=== PATIENT | female | born 1960 | race Caucasian/White ===

== ENCOUNTER 2022-06-18 09:46 | Outpatient (REF) | payer OTHER, SELFPAY ==
[2022-06-18 11:49] LABS: MANUAL DIFF FLAG NO
[2022-06-18 12:00] LABS: Basophils Absolute Auto 0.1 X10*3/uL (0.0-0.2); Basophils Percent Auto 1.5 % (0-2); Eosinophils Absolute Auto 0.3 X10*3/uL (0.0-0.4); Eosinophils Percent Auto 5.6 % (0-4); Hemoglobin 14.6 g/dl (12.0-16.0); Imm Gran Abs Auto 0.01 X10*3/uL (0.00-0.03); Imm Gran Pct Auto 0.2 % (0.0-0.4); Lymphocytes Percent Auto 37.1 % (20-40); Mean Corpuscular HGB Conc 33.2 g/dl (31.0-35.0); Mean Corpuscular Hemoglobin 29.9 pg (27.0-33.0); Mean Platelet Volume 10.3 fL (9.4-12.3); Monocytes Absolute Auto 0.5 X10*3/uL (0.1-1.2); Monocytes Percent Auto 9.8 % (2-11); Neutrophils Absolute Auto 2.4 x10*3/uL (2.0-8.3); Neutrophils Percent Auto 45.8 % (45-73); Platelet Count 275 X10*3/uL (160-400); Red Blood Count 4.89 X10*6/uL (4.20-5.50); Red Cell Distribution Width 12.9 % (11.0-16.0); White Blood Count 5.3 X10*3/uL (4.8-10.8)
[2022-06-18 12:29] LABS: Alanine Aminotransferase 18 U/L (0-31); Albumin Level 4.6 g/dL (3.5-5.0); Alkaline Phosphatase 83 U/L (39-117); Anion Gap 15 (12-20); Aspartate Amino Transferase 25 U/L (5-31); Bilirubin Total 0.5 mg/dL (0.0-1.0); Blood Urea Nitrogen 12 mg/dL (9-16); Calcium 9.7 mg/dL (8.4-10.2); Carbon Dioxide 26 mmol/L (22-29); Chloride 106 mmol/L (96-108); Cholesterol 214 mg/dL; Estimated Glomerular Filt Rate > 60; Glucose Fasting 93 mg/dL (60-99); HDL Cholesterol 63 mg/dL; LDL Cholesterol Calculated 119 mg/dl; Potassium 4.3 mmol/L (3.3-5.1); Sodium 143 mmol/L (135-145); Triglycerides 161 mg/dL
[2022-06-18 12:40] LABS: TSH reflex Free T4 1.95 uIU/mL (0.32-4.0); Vitamin D 25-OH Total 35.4 ng/mL (>30)
== END 2022-06-18 09:47 | disposition home or self-care (01) ==
LOC: HO.HMGCLDS 09:46
PROVIDERS: PCP Internal Medicine; Visit Provider Internal Medicine
DX: Z00.00 Encounter for general adult medical examination without abnormal findings (principal); E03.9 Hypothyroidism, unspecified; E55.9 Vitamin D deficiency, unspecified; E78.5 Hyperlipidemia, unspecified; E04.9 Nontoxic goiter, unspecified
CPT/HCPCS: 36415; 80053; 80061; 82306; 84443; 85025

== ENCOUNTER 2022-07-08 10:20 | Outpatient (REF) | payer OTHER, SELFPAY ==
--- NOTE | ~2022-07-08 | US_ITS ---
EXAMINATION: US THYROID CLINICAL INFORMATION: Nontoxic goiter, unspecified. COMPARISON: None TECHNIQUE: Linear transducer grayscale and color Doppler examination with attention to the region of the thyroid. FINDINGS: SIZE: Measurements of the thyroid lobes and nodules are given in sagittal, anteroposterior and transverse dimensions respectively. Right Thyroid Lobe: 4.5 x 1.9 x 1.8 cm, volume 7.9 mL. Parenchyma: The gland echotexture is heterogeneous. Thyroid vascularity is increased. Left Thyroid Lobe: 3.7 x 1.6 x 2.1 cm, volume 6.5 mL. Parenchyma: The gland echotexture is heterogeneous. Thyroid vascularity is increased. Isthmus: 0.3 cm in maximum AP dimension. Estimated total number of nodules greater than or equal to 1 cm: 1. Cipher Expert nodules are described as follows: 1. Location: Right upper pole. Size: 1.6 x 0.6 x 1.3 cm, volume 0.64 mL. Nodule characteristics: Composition: Solid (2). Echogenicity: Hypoechoic (2). Shape: Not taller than wide (0). Margins: Smooth (0). Echogenic Foci: Punctate echogenic foci (3). ACR TI-RADS total points: 7 ACR TI-RADS category: 5 NODES: Small bilateral normal-appearing cervical lymph nodes adjacent to the thyroid gland. US/US thyroid IMPRESSION: Very heterogeneous hypervascular thyroid gland. Appearance is suggestive of thyroiditis. Solitary right thyroid nodule. Fine-needle aspiration recommended according to TI RADS criteria below. ACR TI-RADS RECOMMENDATION REFERENCE: Ultrasound-guided fine-needle aspiration, followup ultrasound, no further follow up. * TR1 (0 point) and TR 2 (2 points): No FNA or follow up. * TR3 (3 points): FNA if more than or equal to 2.5 cm in maximum dimension, followup ultrasound in 1, 3 and 5 years if 1.5 to 2.4 cm in maximum dimension. * TR4 (4-6 points): FNA if more than or equal to 1.5 cm in maximum dimension, followup ultrasound in 1, 2, 3 and 5 years if 1 to 1.4 cm in maximum dimension. * TR5 (more than or equal to 7 points): FNA if more than or equal to 1 cm in maximum dimension, followup ultrasound every year for 5 years if 0.5 to 0.9 cm in maximum dimension. * TR3, TR4 or TR5 nodules that are below the size threshold for followup receive no follow up.
== END 2022-07-08 10:21 | disposition home or self-care (01) ==
LOC: HO.HMGCX 10:20
PROVIDERS: PCP Internal Medicine; Visit Provider Internal Medicine
DX: E04.9 Nontoxic goiter, unspecified (principal)
CPT/HCPCS: 76536

== ENCOUNTER → 2022-08-28 07:21 | Outpatient (BNVA) | payer OTHER, SELFPAY | PROVIDERS: PCP Internal Medicine; Visit Provider Internal Medicine | DX: E04.1 Nontoxic single thyroid nodule (principal) | CPT/HCPCS: 99202 ==

== ENCOUNTER 2022-08-28 08:02 | Outpatient (REF) | payer OTHER, SELFPAY ==
[2022-08-28 12:08] LABS: Free T4 (Free Thyroxine) 1.38 ng/dL (0.71-1.85); Thyroid Stimulating Hormone 0.81 uIU/mL (0.32-4.0)
[2022-08-30 01:49] LABS: Thyroglobulin Antibodies <1 IU/mL (< or = 1); Thyroid Peroxidase Antibodies 642 IU/mL (<9)
== END 2022-08-28 08:03 | disposition home or self-care (01) ==
LOC: HO.10HDL 08:02
PROVIDERS: Visit Provider Internal Medicine
DX: E04.1 Nontoxic single thyroid nodule (principal)
CPT/HCPCS: 36415; 84439; 84443; 86376; 86800

== ENCOUNTER 2022-12-31 07:58 | Day surgery (SDC) | payer OTHER, SELFPAY ==
--- NOTE | 2022-12-30 11:01 | P.CONAN_ITS ---
HPI - Anesthesia Eval Consult details Narrative: 62yo F for Colonoscopy PMFSH Active Problems Active Problems: All Active Problems (Updated 07/24/22 @ 08:50 by Latasha Watson MD) Thyroid nodule (Acute) Enlarged thyroid (Acute) Vitamin D deficiency (Acute) Postmenopausal (Acute) Hx of colonoscopy (Acute) Mammogram normal (Acute) Normal pelvic exam (Acute) S/P shoulder replacement (Acute) S/P knee replacement (Acute) Annual physical exam (Acute) Hypothyroidism (Acute) Hyperlipidemia (Acute) Past Medical History Medical History (Updated 12/30/22 @ 11:03 by Barb Sue NP) Hyperlipidemia Hypothyroidism Postmenopausal Tubal Family History Family History Father CHF (congestive heart failure) Mother H/O kidney removal Surgical History Surgical History History of total bilateral knee replacement Hx of rotator cuff surgery Hx of tonsillectomy Social History Social History Household Members Other:: , no children, works as [employer] Housing: House Patient Tobacco Use Status: Former Tobacco user e-Cigarette/Vaping Use: Never Used Are you DNR?: No Advance Directives: No Advance Directives Information Provided: Yes Current occupational status: employed Cognitive needs: No Hearing needs: No Vision needs: Yes Meds Allergies Allergy/AdvReac Type Severity Reaction Status Date / Time No Known Allergies Allergy Verified 08/28/22 07:56 Exam Exam Date and Time: December 30, 2022 1101 Assessment and Plan Assessment Anesthesia Assessment: Chart Reviewed
[2022-12-31 08:06] VITALS: BP 145/84; PULSE 58; RESP 20; TEMP 36.1; O2SAT 96; BMI 27.9
[2022-12-31] MEDS: Lactated Ringers 1,000 ML 100 ML IVCONT (08:31)
--- NOTE | 2022-12-31 09:03 | MHC.SHP ---
Pre-Procedural Eval Section A Date of Service: 12/31/22 Section B Chief Complaint: screening Details of Present Illness: see H&P no changes Relevant Family History (Specify if Yes): No Relevant Social History: None Present Medications: see Short Stay Collaborative assessment Medical History: No relevant PMH History of Previous Operations: No relevant previous surgery Allergies: Allergies Allergy/AdvReac Type Severity Reaction Status Date / Time No Known Allergies Allergy Verified 08/28/22 07:56 Review of Systems Sugical H&P ROS: Negative: Constitution, Cardiovascular, Respiratory, Neurological, Psychiatric, Hem-Onc, Allergic/Immunologic, Gastrointestinal, Genitourinary, Musculoskeletal, Integumentary, Endocrine and Eyes/Ears/Nose/Throat Exam Surgical H&P Exam: Normal: HEENT, Normal: Heart, Normal: Lungs, Normal: Extremities, Normal: Abdomen, Normal: Skin and Normal: Neurological Plan Diagnosis/Plan: Unchanged I have reviewed the history and physical and performed a pertinent physical examination on my patient. No changes have occurred unless specified. Time Spent With Patient Time: Total time managing care of this patient today ____ minutes.
--- NOTE | 2022-12-31 09:29 | HO.ANESPROP2 ---
HPI - Anesthesia Eval Consult details Narrative: screening colon PMFSH Active Problems Active Problems: All Active Problems (Updated 12/30/22 @ 11:03 by Barb Sue NP) Thyroid nodule (Acute) Enlarged thyroid (Acute) Vitamin D deficiency (Acute) Hx of colonoscopy (Acute) Mammogram normal (Acute) Normal pelvic exam (Acute) S/P shoulder replacement (Acute) S/P knee replacement (Acute) Annual physical exam (Acute) Past Medical History Medical History (Updated 12/30/22 @ 11:03 by Barb Sue NP) Hyperlipidemia Hypothyroidism Postmenopausal Tubal Family History Family History Father CHF (congestive heart failure) Mother H/O kidney removal Family history of problems with anesthesia: No Surgical History Surgical History History of total bilateral knee replacement Hx of rotator cuff surgery Hx of tonsillectomy History of Problems with Anesthesia: No Social History Social History Household Members Other:: , no children, works as [employer] Housing: House Patient Tobacco Use Status: Former Tobacco user e-Cigarette/Vaping Use: Never Used Are you DNR?: No Advance Directives: No Advance Directives Information Provided: Yes Current occupational status: employed Cognitive needs: No Hearing needs: No Vision needs: Yes Meds Allergies Allergy/AdvReac Type Severity Reaction Status Date / Time No Known Allergies Allergy Verified 08/28/22 07:56 Active Medications: Current Medications Lactated Ringer's (Lr) 1,000 mls @ 100 mls/hr IVCONT .Q10H SANTIAGO Last Admin: 12/31/22 08:31 Dose: 100 mls/hr Exam Exam Date and Time: December 31, 2022 0929 Height,Weight and Vital Signs: Height 5 ft 7 in Weight 80.739 kg Last Vital Signs Temp 97 F 12/31/22 08:06 Pulse 58 12/31/22 08:06 Resp 20 12/31/22 08:06 BP 145/84 H 12/31/22 08:06 Pulse Ox 96 12/31/22 08:06 O2 Del Method Room Air 12/31/22 08:06 Airway Mallampati Class: II TM Dist: >3cm Neck ROM: Full Loose/Missing/Broken Teeth: No Heart: rr Lungs: cta Assessment and Plan Final Anesthetic Review Family History of Problems with Anesthesia: No History of Problems with Anesthesia: No NPO: Yes ASA Class: II Final Preanesthetic Review: No Changes in Pt Med Stat, Meds/Allgs Chart Reviewed, Consent Obtained/Reviewed and Anes Risks/Benef Reviewed Patient Risk: Low Procedure Risk: Low Anesthetic Plan Anesthetic Plan: MAC: Disposition: Standard PACU
--- NOTE | 2022-12-31 10:11 | P.BOP_ITS ---
Brief Operative Note Date of Service: 12/31/22 Pre-op diagnosis: screening Procedure: colonoscopy Surgeon: Kwadwo Chao Anesthesia: MAC Was an Operator/Assistant Foreman used for this Procedure?: No Estimated blood loss (mL): 2 Pathology: other Condition: stable Disposition: PACU
[2022-12-31 10:15] VITALS: BP 126/76; PULSE 58; RESP 16; TEMP 36.6; O2SAT 93
[2022-12-31 10:30] VITALS: BP 136/81; PULSE 57; RESP 18; TEMP 36.6; O2SAT 96
--- NOTE | 2022-12-31 11:26 | OP_ITS ---
DATE OF SERVICE: 12/31/2022 SURGEON: Kwadwo Chao MD INDICATIONS: Colon cancer screening. PREOPERATIVE DIAGNOSIS: POSTOPERATIVE DIAGNOSIS: PROCEDURE PERFORMED: Colonoscopy to the terminal ileum with biopsy and snare polypectomy. ESTIMATED BLOOD LOSS: COMPLICATIONS: ANESTHESIA: Monitored anesthesia care. ASSISTANTS: SPECIMENS: DESCRIPTION OF PROCEDURE: A history and physical was performed. The risks and benefits of the procedure were explained to the patient. Informed consent was obtained. The patient was placed in the left lateral decubitus position. A digital rectal exam was performed and was found to be normal. The Olympus pediatric video colonoscope was introduced into the rectum and advanced to the cecum without difficulty. The cecum was identified by transillumination, palpation, and identification of ileocecal valve. Examination was performed. The scope was removed. She tolerated the procedure well and was returned to the recovery area in stable condition. FINDINGS: The terminal ileum was examined briefly and appeared normal. The visualized colonic mucosa was normal. The quality of the prep was good. At 70 cm were 2 polyps which were removed with a hot snare and biopsy forceps. Both measured less than 10 mm. At 20 cm was an 8 mm polyp, which was removed with a hot snare and recovered via suction. There was mild sigmoid diverticulosis. Retroflexed examination showed small internal hemorrhoids. IMPRESSION: Colon polyps. RECOMMENDATION: Follow up the biopsy results. MD SHARDA Verdugo/ALYSHA / [id number]
== END 2022-12-31 11:00 | disposition home or self-care (01) ==
PROVIDERS: PCP Internal Medicine; Visit Provider Internal Medicine Gastroenterology
PROC: 0DJD8ZZ Inspection of Lower Intestinal Tract, Via Natural or Artificial Opening Endoscopic (ICD-10-PCS; CPT 45378; principal; 2022-12-31 09:00)
DX: Z12.11 Encounter for screening for malignant neoplasm of colon (principal); D12.6 Benign neoplasm of colon, unspecified; K57.30 Diverticulosis of large intestine without perforation or abscess without bleeding; K64.8 Other hemorrhoids; Z86.010 Personal history of colon polyps
CPT/HCPCS: 45385; 88305

== ENCOUNTER 2023-03-20 10:41 | Outpatient (REF) | payer OTHER, SELFPAY ==
--- NOTE | 2023-03-20 11:05 | PM.OP ---
Brief Operative Note Date of Service: 03/20/23 Pre-op diagnosis: Goiter Procedure: EXAMINATION: US THYROID CLINICAL INFORMATION: Multinodular Thyroid COMPARISON: Prior TECHNIQUE: Linear transducer mcgarry-scale and color Doppler examination with attention to the region of the thyroid. FINDINGS: SIZE: Measurements of the thyroid lobes and nodules are given in sagittal, anteroposterior and transverse dimensions respectively. Right Thyroid Lobe: 1.8 x 3.8 x 1.7 cm, volume 6.3 mL. Parenchyma: The gland echotexture is diffusely heterogenous. Left Thyroid Lobe: 1.5 x 3.3 x 1.5 cm, volume 3.8 mL. Parenchyma: The gland echotexture is diffusely heterogenous. Isthmus: 0.1 cm in maximum AP dimension. There are no true nodules visualized, only pseudonodules. NODES: No lymphadenopathy is seen in the tissue surrounding the thyroid gland. Surgeon: Chante Silva, DO Was an Hl7 Interface Developer used for this Procedure?: No Estimated blood loss (mL): 0
== END 2023-03-20 10:42 | disposition home or self-care (01) ==
LOC: HO.US 10:41
PROVIDERS: PCP Internal Medicine; Visit Provider Internal Medicine
DX: E04.1 Nontoxic single thyroid nodule (principal)
CPT/HCPCS: 76536

== ENCOUNTER → 2023-03-20 10:41 | Outpatient (BNV) | payer OTHER, SELFPAY | PROVIDERS: PCP Internal Medicine; Visit Provider Internal Medicine | DX: E04.1 Nontoxic single thyroid nodule (principal) | CPT/HCPCS: 76536 ==

== ENCOUNTER 2023-04-07 07:51 | Outpatient (AMB) | payer OTHER, SELFPAY ==
--- NOTE | 2023-04-07 07:52 | MHC.OFFVIS ---
Intake Intake Visit Reasons: FNA results Intake Note: FNA results. Tractor Engine Mechanic Required: No Allergies No Known Allergies Allergy (Verified 04/07/23 08:00) Medication List - Last Reconciled 04/07/23 by Chante Silva, DO levothyroxine 100 mcg PO DAILY simvastatin 40 mg PO BEDTIME HPI HPI Comments History of Present Illness Details 62 YO F with PMHx Hypothyroidism who is seen in F/U. Was initially diagnosed with multinodular thyroid in 2021 with thyroid US revealing a solitary RUP thyroid nodule. I repeated her US of the thyroid myself 03/20/2023 and found no true nodules, only pseudonodules present. Currently denies any compressive symptoms. Denies sensation of swelling in the neck or difficulty breathing while lying flat. Denies any palpitations, tremors, weight loss, frequent bowel movements. Denies any ocular complaints, blurred or double vision. Denies hair loss, dry skin, heat or cold intolerance, weight gain, confusion. Denies any history of head or neck irradiation. Denies any family history of thyroid cancer. Has hypothyroidism and takes Levothyroxine 100 mcg PO daily. TSH at goal. Thyroid US: 07/08/2022 Right Thyroid Lobe: 4.5 x 1.9 x 1.8 cm, volume 7.9 mL. Parenchyma: The gland echotexture is heterogeneous. Thyroid vascularity is increased. Left Thyroid Lobe: 3.7 x 1.6 x 2.1 cm, volume 6.5 mL. Parenchyma: The gland echotexture is heterogeneous. Thyroid vascularity is increased. Isthmus: 0.3 cm in maximum AP dimension. Estimated total number of nodules greater than or equal to 1 cm: 1. Form Maker Plaster nodules are described as follows: 1. Location: Right upper pole. ?? ? Size: 1.6 x 0.6 x 1.3 cm, volume 0.64 mL. ?? ? Nodule characteristics: ?? ? Composition: Solid (2). ?? ? Echogenicity: Hypoechoic (2). ?? ? Shape: Not taller than wide (0). ?? ? Margins: Smooth (0). ?? ? Echogenic Foci: Punctate echogenic foci (3). ?? ? ACR TI-RADS total points: 7 ?? ? ACR TI-RADS category: 5 NODES: Small bilateral normal-appearing cervical lymph nodes adjacent to the thyroid gland. Labs: Laboratory Tests 08/28/22 08:12 TSH 0.81 PFSH Medical History Hyperlipidemia Hypothyroidism Postmenopausal Tubal Surgical History History of total bilateral knee replacement Hx of rotator cuff surgery Hx of tonsillectomy Family History Father CHF (congestive heart failure) Mother H/O kidney removal Social History Household Members Other:: , no children, works as [employer] Housing: House Patient Tobacco Use Status: Former Tobacco user e-Cigarette/Vaping Use: Never Used Current occupational status: employed Cognitive needs: No Hearing needs: No Vision needs: Yes Assessment & Plan Assessment & Plan (1) Thyroid nodule: Code(s): E04.1 - Nontoxic single thyroid nodule Plan: We repeated her US 03/20/2023 with no identification of any true nodules only pseudonodules. We discussed this today. I advised there is no indication for surveillance US at this time, but if she notes any changes in symptoms such as swelling in the neck, changes in her voice or difficulty swallowing she should notify her PCP and a repeat US can be checked. She will F/u with her PCP for further management. All of her questions were answered. She is in agreement with this plan of care. I spent 20 minutes in reviewing the record, seeing the patient and documenting in the medical record, including 5 minutes on the phone with the Patient. Telehealth Telehealth Location of provider rendering services: practice address Location of patient: address on file Patient Identification confirmed using: Name, : Yes Telehealth method: voice only Patient verbally consented to treatment: Yes Patient verbally consented to billing insurance company: Yes Patient informed of any privacy concerns related to visit: Yes Coding Level of Care Code Tele Est Pt Level 3 (62071) Diagnoses Thyroid nodule E04.1
== END 2023-04-07 14:37 | disposition home or self-care (01) ==
LOC: HO.ENCR 07:51
PROVIDERS: PCP Internal Medicine; Visit Provider Internal Medicine
DX: E04.1 Nontoxic single thyroid nodule (principal)
CPT/HCPCS: 99213

== ENCOUNTER → 2023-04-07 07:51 | Outpatient (BNVA) | payer OTHER, SELFPAY | PROVIDERS: PCP Internal Medicine; Visit Provider Internal Medicine ==

== ENCOUNTER 2023-08-19 07:14 | Outpatient (REF) | payer OTHER, SELFPAY ==
[2023-08-19 11:07] LABS: MANUAL DIFF FLAG NO
[2023-08-19 11:12] LABS: Basophils Absolute Auto 0.1 X10*3/uL (0.0-0.2); Basophils Percent Auto 1.2 % (0-2); Eosinophils Absolute Auto 0.6 X10*3/uL (0.0-0.4); Hemoglobin 14.5 g/dl (12.0-16.0); Imm Gran Abs Auto 0.02 X10*3/uL (0.00-0.03); Imm Gran Pct Auto 0.4 % (0.0-0.4); Lymphocytes Absolute Auto 2.3 X10*3/uL (1.2-4.9); Lymphocytes Percent Auto 39.6 % (20-40); Mean Corpuscular HGB Conc 33.7 g/dl (31.0-35.0); Mean Corpuscular Hemoglobin 30.5 pg (27.0-33.0); Mean Corpuscular Volume 90.5 fL (80.0-98.0); Mean Platelet Volume 10.8 fL (9.4-12.3); Monocytes Absolute Auto 0.5 X10*3/uL (0.1-1.2); Monocytes Percent Auto 9.3 % (2-11); Neutrophils Absolute Auto 2.3 x10*3/uL (2.0-8.3); Neutrophils Percent Auto 39.5 % (45-73); Platelet Count 260 X10*3/uL (160-400); Red Blood Count 4.75 X10*6/uL (4.20-5.50); Red Cell Distribution Width 12.5 % (11.0-16.0); White Blood Count 5.7 X10*3/uL (4.8-10.8)
[2023-08-19 12:04] LABS: Alanine Aminotransferase 18 U/L (0-31); Albumin Level 4.1 g/dL (3.5-5.0); Alkaline Phosphatase 63 U/L (39-117); Anion Gap 10 (12-20); Aspartate Amino Transferase 19 U/L (5-31); Bilirubin Total 0.4 mg/dL (0.0-1.0); Blood Urea Nitrogen 9 mg/dL (9-16); Calcium 9.2 mg/dL (8.4-10.2); Carbon Dioxide 29 mmol/L (22-29); Chloride 110 mmol/L (96-108); Cholesterol 144 mg/dL (<200); Estimated Glomerular Filt Rate > 60; Glucose Fasting 99 mg/dL (60-99); HDL Cholesterol 55 mg/dL (>40); LDL Cholesterol Calculated 57 mg/dL (<100); Potassium 4.5 mmol/L (3.3-5.1); Sodium 144 mmol/L (135-145); Total Protein 6.6 g/dL (6.5-8.0); Triglycerides 160 mg/dL (<150)
[2023-08-19 12:21] LABS: TSH reflex Free T4 2.79 uIU/mL (0.32-4.0)
== END 2023-08-19 07:15 | disposition home or self-care (01) ==
LOC: HO.HMGCLDS 07:14
PROVIDERS: PCP Internal Medicine; Visit Provider Internal Medicine
DX: Z00.00 Encounter for general adult medical examination without abnormal findings (principal); E04.9 Nontoxic goiter, unspecified; E03.9 Hypothyroidism, unspecified; E78.5 Hyperlipidemia, unspecified
CPT/HCPCS: 36415; 80053; 80061; 84443; 85025

== ENCOUNTER 2023-08-25 09:25 | Outpatient (AMB) | payer OTHER, SELFPAY ==
[2023-08-25 09:39] VITALS: BP 110/66; PULSE 68; O2SAT 95; BMI 27.4
--- NOTE | 2023-08-25 09:39 | MHC.PC.OV ---
Vital Signs 08/25/23 09:39 Height 5 ft 7 in Weight 175 lb BMI 27.4 BP 110/66 Blood Pressure Location Lt brachial Position Sitting Pulse 68 Pulse Source Pulse Oximeter Pulse Oximetry (%) 95 Oxygen Delivery Method Room Air Intake Visit Reasons: PE Intake Note: Pt is here today for PE. Pt states that she has appt next month with her Double Reamer Operator at [facility]. Allergies No Known Allergies Allergy (Verified 08/25/23 09:49) Medication List - Last Reconciled 08/25/23 by Latasha Watson MD levothyroxine 100 mcg PO DAILY simvastatin 40 mg PO BEDTIME Tobacco use date assessed: 08/25/23 Fall risk assessment: No Falls in past year Last assessed Fall Risk: 08/25/23 Dental Screening Dental Screen Date: 08/25/23 Did you have a dental visit in the last 12 months?: Yes Did you have a dental problem in the last 6 months where you did not have access to dental care?: No Was dental information given to patient?: Patient has dentist [facility] Medical History (Updated 08/25/23 @ 10:38 by Latasha Watson MD) Postmenopausal Hypothyroidism Hyperlipidemia Surgical History (Updated 08/25/23 @ 10:22 by Latasha Watson MD) Hx of rotator cuff surgery Hx of tonsillectomy History of total bilateral knee replacement Family History Father CHF (congestive heart failure) Mother H/O kidney removal Social History Household Members Other:: , no children, works as [employer] Housing: House Patient Tobacco Use Status: Former Tobacco user e-Cigarette/Vaping Use: Never Used Current occupational status: employed Cognitive needs: No Hearing needs: No Vision needs: Yes Questionnaire PHQ-9 Over the last 2 weeks, how often have you been bothered by any of the following problems? 1. Little interest or pleasure in doing things: not at all 2. Feeling down, depressed, or hopeless: not at all 3. Trouble falling or staying asleep, or sleeping too much: not at all 4. Feeling tired or having little energy: not at all 5. Poor appetite or overeating: not at all 6. Feeling bad about yourself - or that you are a failure or have let yourself or your family down: not at all 7. Trouble concentrating on things, such as reading the newspaper or watching television: not at all 8. Moving or speaking so slowly that other people could have noticed. Or the opposite - being so fidgety or restless that you have been moving around a lot more than usual: not at all 9. Thoughts that you would be better off or of hurting yourself in some way: not at all Total score: 0 Depression Screening Interpretation: Negative Depression Screening Done: Yes Source: Developed by Drs. Hari Bergeron, Katia Gaston, Damon Cornell and colleagues, with an educational william from [employer]. Thrive Questionnaire Date Thrive assessed: 08/25/23 I am a: Patient What is your living situation today?: I have a steady place to live Within the past 12 months, did the food you bought not last and you didn't have the money to get more?: Never true Within the past 12 months, did you worry whether your food would run out before you got money to buy more?: Never true Do you have trouble paying for medicines?: No Do you have trouble getting transportation to medical appointments?: No Do you have trouble paying your heating and electricity bill?: No Do you have trouble taking care of your child, family member or friend?: No Do you have trouble with day-to-day activities such as bathing, preparing meals, shopping, managing finances, etc.?: No Are you currently unemployed and looking for a job?: No Are you interested in more education?: No Please select the resources that you would like help with: None Currently or been in a relationship where the following occur: no concerns reported AUDIT C Alcohol Use Questionnaire (AUDIT-C) 1. How often do you have a drink containing alcohol?: Monthly or less 2. How many drinks containing alcohol do you have on a typical day when you are drinking?: 1 or 2 3. How often do you have six or more drinks on one occasion?: Never Total Score: 1 RAY-7 AMB Questionnaire RAY-7 Date RAY - 7 assessed: 08/25/23 Feeling nervous, anxious, or on edge: 0 = Not at all Not being able to stop or control worryin = Not at all Worrying too much about different things: 0 = Not at all Trouble relaxin = Not at all Being so restless that it is hard to sit still: 0 = Not at all Becoming easily annoyed or irritable: 0 = Not at all Feeling afraid as if something awful might happen: 0 = Not at all Total RAY-7 score (0-4 normal; 5-9 mild; 10-14 moderate; 15-21 severe): 0 Source: Developed by Drs. Hari Bergeron, Katia Gaston, Damon Cornell and colleagues, with an educational william from [employer]. Review of Systems Const All systems reviewed & are unremarkable except as noted in HPI and below Reports no additional complaints Eyes Reports no additional complaints ENT Reports no additional complaints Card Reports no additional complaints Resp Reports no additional complaints GI Reports no additional complaints Reports no additional complaints Physical exam (Primary Care) Vital Signs: Last Vital Signs Pulse 68 08/25/23 09:39 BP 110/66 08/25/23 09:39 Pulse Ox 95 08/25/23 09:39 Oxygen Delivery Method Room Air 08/25/23 09:39 BMI result Body Mass Index 27.4 Tobacco/Smoking Status: Tobacco use Status Tobacco use date assessed 08/25/23 08/25/23 09:41 Patient Tobacco Use Status Former Tobacco user 08/25/23 09:41 e-Cigarette/Vaping Use Never Used 08/25/23 09:41 PHQ-9: PHQ-9 Score PHQ-9: Total score 0 08/25/23 09:53 Depression Screening Interpretation: Negative Thrive Assessment: Date of Thrive Assessment Date Thrive assessed 08/25/23 08/25/23 09:53 Currently or been in a relationship where the following occur: no concerns reported Const General: no acute distress HENMT Head: Yes normal to inspection Ears: hearing grossly normal bilaterally Face and sinus: Yes normal facial exam Throat: Yes posterior oropharynx normal Eyes General: appearance normal, both eyes and all related structures Neck Neck: Yes no lymphadenopathy and Yes supple Resp Effort & Inspection: normal respiratory effort Auscultation: clear to auscultation bilaterally Cardio Rhythm: regular rhythm Heart sounds: S1 normal heart sound present and S2 normal heart sound present GI Inspection: Yes normal to inspection Palpation (GI): Soft to palpation Percussion: Yes normal to percussion Auscultation: normal bowel sounds Assessment and Plan Assessment & Plan (1) Mammogram normal: Comment: [facility] 2022 (2) Hx of colonoscopy: Comment: 11/2017, 1 polyp, 04/2023 polyps, Dr. Chao recheck 5 yrs Code(s): Z98.890 - Other specified postprocedural states Plan: f/u with GI (3) Thyroid nodule: Comment: negative US repeated by Endo, no need for recheck Code(s): E04.1 - Nontoxic single thyroid nodule (4) Hypothyroidism: Code(s): E03.9 - Hypothyroidism, unspecified Plan: cont Levothyroxine (5) Hyperlipidemia: Code(s): E78.5 - Hyperlipidemia, unspecified Plan: cont Simvastatin (6) Annual physical exam: Code(s): Z00.00 - Encounter for general adult medical examination without abnormal findings Plan: Well-balanced diet regular exercise discussed with the patient. Return in 1 year for PE (7) Postmenopausal: Comment: DEXA 09/09 [facility] T score-1.3 osteopenia Code(s): Z78.0 - Asymptomatic menopausal state Plan: Continue vitamin-D supplement and regular weight-bearing exercises Orders: Orders Complete Blood Count Auto Diff 365 Days E03.9 - Hypothyroidism, unspecified, E04.1 - Nontoxic single thyroid nodule, E78.5 - Hyperlipidemia, unspecified, Z00.00 - Encounter for general adult medical examination without abnormal findings, Z98.890 - Other specified postprocedural states TSH reflex Free T4 365 Days E03.9 - Hypothyroidism, unspecified, E04.1 - Nontoxic single thyroid nodule, E78.5 - Hyperlipidemia, unspecified, Z00.00 - Encounter for general adult medical examination without abnormal findings, Z98.890 - Other specified postprocedural states Comprehensive [place]. Panel Fast 365 Days E03.9 - Hypothyroidism, unspecified, E04.1 - Nontoxic single thyroid nodule, E78.5 - Hyperlipidemia, unspecified, Z00.00 - Encounter for general adult medical examination without abnormal findings, Z98.890 - Other specified postprocedural states Lipid Panel 365 Days E03.9 - Hypothyroidism, unspecified, E04.1 - Nontoxic single thyroid nodule, E78.5 - Hyperlipidemia, unspecified, Z00.00 - Encounter for general adult medical examination without abnormal findings, Z98.890 - Other specified postprocedural states Vitamin D 25-OH Total 365 Days E03.9 - Hypothyroidism, unspecified, E04.1 - Nontoxic single thyroid nodule, E78.5 - Hyperlipidemia, unspecified, Z00.00 - Encounter for general adult medical examination without abnormal findings, Z98.890 - Other specified postprocedural states Coding Level of Care Code Est Pt Prev Care 40-64y(63670) Diagnoses Mammogram normal Hx of colonoscopy Z98.890 Thyroid nodule E04.1 Hypothyroidism E03.9 Hyperlipidemia E78.5 Annual physical exam Z00.00 Postmenopausal Z78.0
== END 2023-08-25 10:38 | disposition home or self-care (01) ==
PROVIDERS: PCP Internal Medicine; Visit Provider Internal Medicine
DX: Z98.890 Other specified postprocedural states (principal); E04.1 Nontoxic single thyroid nodule; E03.9 Hypothyroidism, unspecified; E78.5 Hyperlipidemia, unspecified; Z00.00 Encounter for general adult medical examination without abnormal findings; Z78.0 Asymptomatic menopausal state
CPT/HCPCS: 99396

== ENCOUNTER 2024-09-07 07:19 | Outpatient (REF) | payer MEDICARE, SELFPAY ==
[2024-09-07 09:59] LABS: MANUAL DIFF FLAG NO
[2024-09-07 10:14] LABS: Basophils Absolute Auto 0.1 X10*3/uL (0.0-0.2); Basophils Percent Auto 1.2 % (0-2); Eosinophils Absolute Auto 0.3 X10*3/uL (0.0-0.4); Eosinophils Percent Auto 4.8 % (0-4); Hematocrit 44.1 % (37.0-47.0); Hemoglobin 14.8 g/dl (12.0-16.0); Imm Gran Abs Auto 0.02 X10*3/uL (0.00-0.03); Imm Gran Pct Auto 0.4 % (0.0-0.4); Lymphocytes Absolute Auto 1.9 X10*3/uL (1.2-4.9); Lymphocytes Percent Auto 35.6 % (20-40); Mean Corpuscular HGB Conc 33.6 g/dl (31.0-35.0); Mean Corpuscular Hemoglobin 30.5 pg (27.0-33.0); Mean Corpuscular Volume 90.9 fL (80.0-98.0); Mean Platelet Volume 10.6 fL (9.4-12.3); Monocytes Absolute Auto 0.5 X10*3/uL (0.1-1.2); Monocytes Percent Auto 9.1 % (2-11); Neutrophils Absolute Auto 2.5 x10*3/uL (2.0-8.3); Neutrophils Percent Auto 48.9 % (45-73); Platelet Count 264 X10*3/uL (160-400); Red Blood Count 4.85 X10*6/uL (4.20-5.50); Red Cell Distribution Width 12.6 % (11.0-16.0); White Blood Count 5.2 X10*3/uL (4.8-10.8)
[2024-09-07 11:17] LABS: Alanine Aminotransferase 21 U/L (0-31); Albumin Level 4.4 g/dL (3.5-5.0); Alkaline Phosphatase 63 U/L (39-117); Anion Gap 9 (12-20); Aspartate Amino Transferase 23 U/L (5-31); Bilirubin Total 0.5 mg/dL (0.0-1.0); Blood Urea Nitrogen 18 mg/dL (9-16); Calcium 9.2 mg/dL (8.4-10.2); Carbon Dioxide 30 mmol/L (22-29); Chloride 108 mmol/L (96-108); Cholesterol 194 mg/dL (<200); Estimated Glomerular Filt Rate > 60; Glucose Fasting 97 mg/dL (60-99); HDL Cholesterol 58 mg/dL (>40); LDL Cholesterol Calculated 101 mg/dL (<100); Potassium 3.8 mmol/L (3.3-5.1); Sodium 143 mmol/L (135-145); TSH reflex Free T4 3.45 uIU/mL (0.32-4.0); Total Protein 7.2 g/dL (6.5-8.0); Triglycerides 175 mg/dL (<150); Vitamin D 25-OH Total 42.7 ng/mL (>30)
== END 2024-09-07 07:20 | disposition home or self-care (01) ==
LOC: HO.HMGCLDS 07:19
PROVIDERS: PCP Internal Medicine; Visit Provider Internal Medicine
DX: Z00.00 Encounter for general adult medical examination without abnormal findings (principal); E03.9 Hypothyroidism, unspecified; E04.1 Nontoxic single thyroid nodule; E78.5 Hyperlipidemia, unspecified; Z98.890 Other specified postprocedural states
CPT/HCPCS: 36415; 80053; 80061; 82306; 84443; 85025

== ENCOUNTER 2024-09-14 08:27 | Outpatient (AMB) | payer MEDICARE, SELFPAY ==
[2024-09-14 08:32] VITALS: BP 126/74; PULSE 65; TEMP 36.6; O2SAT 96; BMI 27.4
--- NOTE | 2024-09-14 08:32 | MHC.PC.OV ---
Vital Signs 09/14/24 08:32 Height 5 ft 7 in Weight 175 lb BMI 27.4 BP 126/74 Blood Pressure Location Rt brachial Position Sitting Pulse 65 Pulse Source Pulse Oximeter Temp 97.8 F Temp Source Oral Pulse Oximetry (%) 96 Oxygen Delivery Method Room Air Intake Visit Reasons: Annual PE Intake Note: Pt is here today for PE. Allergies No Known Allergies Allergy (Verified 09/14/24 08:33) Medication List - Last Reconciled 09/14/24 by Latasha Watson MD levothyroxine 100 mcg PO DAILY simvastatin 40 mg PO BEDTIME Tobacco use date assessed: 09/14/24 Fall risk assessment: No Falls in past year Last assessed Fall Risk: 09/14/24 Dental Screening Dental Screen Date: 09/14/24 Did you have a dental visit in the last 12 months?: Yes Did you have a dental problem in the last 6 months where you did not have access to dental care?: No Was dental information given to patient?: Patient has dentist HPI Annual PE HPI Details pt presents for PE. PFSH Medical History Postmenopausal Hypothyroidism Hyperlipidemia Surgical History Hx of rotator cuff surgery Hx of tonsillectomy History of total bilateral knee replacement Family History Father CHF (congestive heart failure) Mother H/O kidney removal Social History Household Members Other:: , no children, works as [employer] Housing: House Patient Tobacco Use Status: Former Tobacco user e-Cigarette/Vaping Use: Never Used service: No Current occupational status: employed Cognitive needs: No Hearing needs: No Vision needs: Yes Questionnaire PHQ-9 Over the last 2 weeks, how often have you been bothered by any of the following problems? 1. Little interest or pleasure in doing things: not at all 2. Feeling down, depressed, or hopeless: not at all 3. Trouble falling or staying asleep, or sleeping too much: not at all 4. Feeling tired or having little energy: not at all 5. Poor appetite or overeating: several days 6. Feeling bad about yourself - or that you are a failure or have let yourself or your family down: not at all 7. Trouble concentrating on things, such as reading the newspaper or watching television: not at all 8. Moving or speaking so slowly that other people could have noticed. Or the opposite - being so fidgety or restless that you have been moving around a lot more than usual: not at all 9. Thoughts that you would be better off or of hurting yourself in some way: not at all Total score: 1 Depression Screening Interpretation: Negative Depression Screening Done: Yes 87591 - PHQ-9 Billing: Yes Source: Developed by Drs. Hari Bergeron, Katia Gaston, Damon Cornell and colleagues, with an educational william from [employer]. Thrive Questionnaire Date Thrive assessed: 09/14/24 I am a: Patient What is your living situation today?: I have a steady place to live Within the past 12 months, did the food you bought not last and you didn't have the money to get more?: Never true Within the past 12 months, did you worry whether your food would run out before you got money to buy more?: Never true Do you have trouble paying for medicines?: No Do you have trouble getting transportation to medical appointments?: No Do you have trouble paying your heating and electricity bill?: No Do you have trouble taking care of your child, family member or friend?: No Do you have trouble with day-to-day activities such as bathing, preparing meals, shopping, managing finances, etc.?: No Are you currently unemployed and looking for a job?: No Are you interested in more education?: No Please select the resources that you would like help with: None Currently or been in a relationship where the following occur: No concerns reported THRIVE Score: 0 AUDIT C Alcohol Use Questionnaire (AUDIT-C) 1. How often do you have a drink containing alcohol?: Never 3. How often do you have six or more drinks on one occasion?: Never Total Score: 0 RAY-7 AMB Questionnaire RAY-7 Date RAY - 7 assessed: 09/14/24 Feeling nervous, anxious, or on edge: 0 = Not at all Not being able to stop or control worryin = Not at all Worrying too much about different things: 0 = Not at all Trouble relaxin = Not at all Being so restless that it is hard to sit still: 1 = Several days Becoming easily annoyed or irritable: 1 = Several days Feeling afraid as if something awful might happen: 0 = Not at all Total RAY-7 score (0-4 normal; 5-9 mild; 10-14 moderate; 15-21 severe): 2 Source: Developed by Drs. Hari Bergeron, Katia Gaston, Damon Cornell and colleagues, with an educational william from [employer]. RAY-7 Assessment Billing RAY-7 Assessment Tool: RAY-7 Assessment 55288 Review of Systems Const All systems reviewed & are unremarkable except as noted in HPI and below Eyes Reports no additional complaints ENT Reports no additional complaints Card Reports no additional complaints Resp Reports no additional complaints GI Reports no additional complaints Reports no additional complaints Physical exam (Primary Care) Vital Signs: Last Vital Signs Temp 97.8 F 09/14/24 08:32 Pulse 65 09/14/24 08:32 BP 126/74 09/14/24 08:32 Pulse Ox 96 09/14/24 08:32 Oxygen Delivery Method Room Air 09/14/24 08:32 BMI result Body Mass Index 27.4 Tobacco/Smoking Status: Tobacco use Status Tobacco use date assessed 09/14/24 09/14/24 08:36 Patient Tobacco Use Status Former Tobacco user 09/14/24 08:36 e-Cigarette/Vaping Use Never Used 09/14/24 08:36 PHQ-9: PHQ-9 Score PHQ-9: Total score 1 09/14/24 08:38 Depression Screening Interpretation: Negative Thrive Assessment: Date of Thrive Assessment Date Thrive assessed 09/14/24 09/14/24 08:38 Currently or been in a relationship where the following occur: No concerns reported Const General: no acute distress HENMT Head: Yes normal to inspection Ears: hearing grossly normal bilaterally Face and sinus: Yes normal facial exam Throat: Yes posterior oropharynx normal Eyes General: appearance normal, both eyes and all related structures Neck Neck: Yes no lymphadenopathy and Yes supple Resp Effort & Inspection: normal respiratory effort Auscultation: clear to auscultation bilaterally Cardio Rhythm: regular rhythm Heart sounds: S1 normal heart sound present and S2 normal heart sound present GI Inspection: Yes normal to inspection Palpation (GI): Soft to palpation Percussion: Yes normal to percussion Auscultation: normal bowel sounds Coding Level of Care Code Est Pt Prev Care >65y(02667) Diagnoses Annual physical exam Z00.00 Hx of colonoscopy Z98.890 Hyperlipidemia E78.5 Hypothyroidism E03.9 Vitamin D deficiency E55.9 Additional Codes RAY-7 Assessment Billing - RAY-7 Assessment Tool: RAY-7 Assessment 75171 ([id number]) PHQ-9 - 71254 - PHQ-9 Billing: Yes ([id number]) Assessment & Plan Assessment & Plan (1) Annual physical exam: Code(s): Z00.00 - Encounter for general adult medical examination without abnormal findings Category: Medical Plan: Well-balanced diet regular physical activity discussed with the patient. She is up-to-date with the mammogram colonoscopy and Pap smear by obstetrician and gynaecologist (2) Hx of colonoscopy: Comment: 11/2017, 1 polyp, 04/2023 polyps, Dr. Jeremie huerta 5 yrs Code(s): Z98.890 - Other specified postprocedural states Category: Surgical Plan: Follow-up with GI (3) Hyperlipidemia: Code(s): E78.5 - Hyperlipidemia, unspecified Category: Medical Plan: Continue statin (4) Hypothyroidism: Code(s): E03.9 - Hypothyroidism, unspecified Category: Medical Plan: Continue levothyroxine (5) Vitamin D deficiency: Code(s): E55.9 - Vitamin D deficiency, unspecified Category: Medical Plan: Continue vitamin-D supplement Orders: Orders Comprehensive [place]. Panel Fast 1 Year E03.9 - Hypothyroidism, unspecified, E55.9 - Vitamin D deficiency, unspecified, E78.5 - Hyperlipidemia, unspecified, Z00.00 - Encounter for general adult medical examination without abnormal findings Vitamin D 25-OH Total 1 Year E03.9 - Hypothyroidism, unspecified, E55.9 - Vitamin D deficiency, unspecified, E78.5 - Hyperlipidemia, unspecified, Z00.00 - Encounter for general adult medical examination without abnormal findings Complete Blood Count Auto Diff 1 Year E03.9 - Hypothyroidism, unspecified, E55.9 - Vitamin D deficiency, unspecified, E78.5 - Hyperlipidemia, unspecified, Z00.00 - Encounter for general adult medical examination without abnormal findings Lipid Panel 1 Year E03.9 - Hypothyroidism, unspecified, E55.9 - Vitamin D deficiency, unspecified, E78.5 - Hyperlipidemia, unspecified, Z00.00 - Encounter for general adult medical examination without abnormal findings TSH reflex Free T4 1 Year E03.9 - Hypothyroidism, unspecified, E55.9 - Vitamin D deficiency, unspecified, E78.5 - Hyperlipidemia, unspecified, Z00.00 - Encounter for general adult medical examination without abnormal findings Medications: Refilled levothyroxine 100 mcg PO DAILY 90 tabs 3RF simvastatin 40 mg PO BEDTIME 90 tabs 3RF
--- OUTSIDE RECORDS SUMMARY | 2024-09-14 08:49 | XMS_ITS | Patient Health Record ---
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 the day before the procedure for 1 day 11/21/2022 Active IMMUNIZATIONS Vaccine Route Administration Date Status Comme nts Influenza Unknown 07/09/2022 Administered SOCIAL HISTORY Sex Assigned At : Social History Observation Description Sex Assigned At Unknown PROBLEMS Problem Type ICD Code Onset Dates Problem Status W/U Status Risk SNOMED Code Notes Problem Colon cancer screening (Z12.11) Active confirmed 112872888 Problem Encounter for other preprocedural examination (Z01.818) Active confirmed 020032861 PLAN OF TREATMENT Future Test Test Name Order Date COLONOSCOPY 08/23/2011 COLONOSCOPY 09/17/2017 COLONOSCOPY 11/21/2022 Insurance Providers Payer Name Payer Address Payer Phone Subscriber Number Group Number Insured Name Patient Relationship to Insured Coverage Start Date Coverage End Date [address] [id number] XAVIER MORALES Self - patient is the insured MEDICAL (GENERAL) HISTORY Medical History History ICD Code hypothyroidism endometriosis elevated cholesterol degenerative joint disease Colonoscopy/, tubular adenoma, five -year followup thyroid biopsy Surgical History Surgery Date(Month/Year) tonsillectomy salpingo-oophorectomy for tubal pregnanc y knee replacement x 2
== END 2024-09-14 09:04 | disposition home or self-care (01) ==
PROVIDERS: PCP Internal Medicine; Visit Provider Internal Medicine
DX: Z00.00 Encounter for general adult medical examination without abnormal findings (principal); Z98.890 Other specified postprocedural states; E78.5 Hyperlipidemia, unspecified; E03.9 Hypothyroidism, unspecified; E55.9 Vitamin D deficiency, unspecified

== ENCOUNTER → 2024-09-14 08:27 | Outpatient (BNVA) | payer MEDICARE, SELFPAY | PROVIDERS: PCP Internal Medicine; Visit Provider Internal Medicine | DX: Z00.00 Encounter for general adult medical examination without abnormal findings (principal); E78.5 Hyperlipidemia, unspecified; E03.9 Hypothyroidism, unspecified; E55.9 Vitamin D deficiency, unspecified; Z98.890 Other specified postprocedural states | CPT/HCPCS: 96127; 99397 ==